=== PATIENT | male | born 1985 | race Caucasian/White ===

== ENCOUNTER → 2024-01-12 09:08 | Outpatient (CLI) | payer OTHER, SELFPAY ==
--- NOTE | 2024-01-12 09:11 | DI.ECHO.S_ITS ---
[facility]+ [facility] : : [address] : : [place] : : [id number] : : Phone: [phone] Echocardiogram Report + + :Name: THUY KERNS Study Date: 01/12/2024 Height: 68 in : :Hospital ReadingLocation: Weight: 170 lb : : Gender: Male BSA: 1.9 m2 : :: 1985 Age: 38 yrs BP: 181/118 mmHg: :Reason For Study: HEART FAILURE WITH MID RANGE EJECTION : :FRACTION : :Ordering Physician: GREGORY WAN Performed By: Kyung Clemens : :Referring: GREGORY WAN : + + Interpretation Summary 1. The left ventricular contractility is severely compromised. Estimated ejection fraction is 25 to 30% with global hypokinesis. No LVH. Grade 2 diastolic dysfunction. 2. The right ventricular contractility is normal. 3. Severe left ventricular enlargement with LVEDD of 6.8 cm. All other cardiac chambers are of normal size. 4. Mild to moderate mitral regurgitation with no obvious valvular abnormalities suggestive of secondary mitral regurgitation. 5. Trace to mild aortic insufficiency 6. No obvious intracardiac shunts. 7. No obvious intracardiac masses nor thrombi. 7. No hemodynamically significant pericardial effusion. 8. Low right-sided filling pressures. Conclusion: Severely dilated and compromised left ventricular systolic function with mild to moderate valvular insufficiencies. Procedure: A two-dimensional transthoracic echocardiogram with color flow and Doppler was performed. The study quality was technically adequate. There is no prior echocardiogram noted for this patient. The patient was in sinus rhythm with heart rates between 63-75 bpm during the exam. Left Ventricle: There is normal left ventricular wall thickness. The estimated left ventricular end diastolic volume is 147 ml. The left ventricle is mildly dilated. The ejection fraction is estimated to be 25-30%. Right Ventricle: The right ventricle is normal in size and function. Atria: The left atrial size is normal. Right atrial size is normal. There is no Doppler evidence for an interatrial shunt. Mitral Valve: The mitral valve leaflets appear to open well. There is no mitral valve stenosis. There is mild to moderate mitral regurgitation. There are multiple regurgitant jets present. Aortic Valve: The aortic valve is trileaflet. The aortic valve opens well. There is no aortic valve stenosis. There is mild aortic regurgitation. Tricuspid Valve: The tricuspid valve is normal in structure and function. There is mild tricuspid regurgitation. The right ventricular systolic pressure is estimated to be at least 25 mmHg based on an estimated right atrial pressure of 3 mm Hg. Pulmonic Valve: The pulmonic valve leaflets are thin and pliable; valve motion is normal. There is a trace or physiologic amount of pulmonic regurgitation. Great Vessels: The aortic root is normal size. The dimensions of the ascending aorta are normal. The IVC is of normal diameter and collapses greater than 50% with a sniff. This suggests a low right atrial pressure of 3 mm Hg. Pericardium/ Pleura There is no pericardial effusion. There is no pleural effusion. MMode/2D Measurements & Calculations LVIDd: 6.8 cm LVOT diam: 2.0 cm LVIDs: 6.0 cm Ao root diam: 3.1 cm FS: 12.3 % asc Aorta Diam: 3.5 cm EPSS: 1.7 cm Ao Arch Diam (Prox Trans): 3.1 cm IVSd: 0.73 cm LVPWd: 0.77 cm LV bronson. diameter/BSA (cm/m^2): 3.6 LV sys. diameter/BSA (cm/m^2): 3.1 LA A2 area: 21.8 cm2 RA long axis: 4.7 cm LA A4 area: 15.4 cm2 RA area: 14.9 cm2 LA length (vol): 4.8 cm RA vol: 40.0 ml LA vol: 59.4 ml RA : 20.9 ml/m2 LA vol index: 31.2 ml/m2 IVC diam: 1.6 cm RVD1 (basal): 3.1 cm RVD2 (mid): 2.6 cm TAPSE: 1.9 cm Doppler Measurements & Calculations Ao V2 max: 122.4 cm/sec LVOT Max Juan: 73.6 cm/sec Ao V2 mean: 88.8 cm/sec LV V1 max P.2 mmHg Ao max P.0 mmHg LV V1 VTI: 15.2 cm Ao mean P.5 mmHg NEGRA(I,D): 1.9 cm2 Ao V2 VTI: 25.4 cm NEGRA(V,D): 1.9 cm2 sev ratio: 0.60 NEGRA indexed to BSA (cm^2/m^2): 0.98 MV E max juan: 68.1 cm/sec TR max juan: 234.0 cm/sec MV A max juan: 61.2 cm/sec TR max P.9 mmHg MV E/A: 1.1 PA V2 max: 89.0 cm/sec Med Peak E' Juan: 6.3 cm/sec PA V2 mean: 63.7 cm/sec E/E' med: 10.7 PA mean P.8 mmHg Lat Peak E' Juan: 6.4 cm/sec PA pr(Accel): 7.1 mmHg E/E' lat: 10.6 E/e' average: 10.7 MV dec time: 0.36 sec SV(LVOT): 47.2 ml Reading Physician:
== END ==
PROVIDERS: PCP Student in an Organized Health Care Education/Training Program; Referring Provider Internal Medicine; Visit Provider Internal Medicine
DX: I08.3 Combined rheumatic disorders of mitral, aortic and tricuspid valves (principal); I50.22 Chronic systolic (congestive) heart failure
CPT/HCPCS: 93306

== ENCOUNTER → 2024-04-03 15:39 | Outpatient (CLI) | payer OTHER, SELFPAY ==
--- NOTE | 2024-04-03 18:48 | DI.NM.S_ITS ---
DATE OF SERVICE: 04/03/2024 EXERCISE TREADMILL STRESS TEST PROCEDURE PERFORMED: Exercise treadmill stress test without imaging. ORDERING PROVIDER: Kurt Wan MD INDICATIONS: The patient is a 38-year-old hypertensive male with exertional dyspnea and a cardiomyopathy. FINDINGS: 1. The patient was able to exercise for 6 minutes 33 seconds on a standard Anthony protocol suggesting moderate-severely reduced exercise capacity with an SHANTI of +45%, achieving 7.0 METS. 2. The patient had a borderline accentuated heart rate response to exercise with a resting heart rate of 74 BPM increasing to a maximum of 191 BPM (105% of his predicted maximum). His resting blood pressure was 140/100 that increased to 180/106. Oxygen saturation was 95% at peak exercise. 3. He had limiting exertional dyspnea at peak exercise but no angina or other anginal symptoms. 4. His resting ECG showed sinus rhythm with normal ST segments. With stress, there are no significant ST-segment shifts or concerning arrhythmias. IMPRESSION: 1. Normal exercise treadmill stress test for ischemia. 2. Moderate-severely reduced exercise capacity with limiting dyspnea but no angina or arrhythmias, and normal exercise oximetry. Viktor Ptael - /verenice/BHARATH doc#: [id number]/job#: [id number] dd: 04/03/2024 17:26:00 dt: 04/03/2024 18:25:00 DICTATING MD/COPIES TO: Rodney Santo MD; Kurt Wan MD COPIES MNE: JAIRO;
== END ==
PROVIDERS: PCP Student in an Organized Health Care Education/Training Program; Referring Provider Internal Medicine; Visit Provider Internal Medicine
DX: I50.22 Chronic systolic (congestive) heart failure (principal); R06.00 Dyspnea, unspecified; I42.9 Cardiomyopathy, unspecified
CPT/HCPCS: 93017